=== PATIENT | female | born 1995 | race Two or more races ===

== ENCOUNTER 2022-08-06 22:54 | Outpatient (CLI) | payer OTHER ==
[~2022-08-06 22:54] MED LIST: PRENATAL 19 TA1 EAC1 PO; TUMS300 MG PO
== END 2022-08-06 23:19 | disposition home or self-care (01) ==
LOC: NST 22:54
PROVIDERS: ATTEND Obstetrics & Gynecology
DX: Z34.83 Encounter for supervision of other normal pregnancy, third trimester (principal)

== ENCOUNTER 2022-10-14 10:15 | Inpatient (IN) | payer OTHER ==
[~2022-10-14] VITALS: Ht 152.4 cm; Wt 81.6 kg
[2022-10-16] MEDS ORDERED: IRON325 MG PO (07:08)
== END 2022-10-19 15:09 | disposition home or self-care (01) | DRG 788 ==
LOC: O/R 10-16 06:35 → OB/GYN 10-16 06:35 → SURG 10-16 10:15 → OB/GYN 10-16 14:09
PROVIDERS: ADMIT Obstetrics & Gynecology; ATTEND Obstetrics & Gynecology
PROC: 4A1HXCZ Monitoring of Products of Conception, Cardiac Rate, External Approach (ICD-10-PCS; 2022-10-16)
PROC: 10D00Z1 Extraction of Products of Conception, Low, Open Approach (ICD-10-PCS; principal; 2022-10-16 12:30)
DX: O32.1XX0 Maternal care for breech presentation, not applicable or unspecified (principal); Z3A.39 39 weeks gestation of pregnancy; Z37.0 Single live birth; Z20.822 Contact with and (suspected) exposure to COVID-19